=== PATIENT | female | born 1965 | race Caucasian/White ===

== ENCOUNTER → 2020-08-19 12:57 | Outpatient (CLI) | payer SELFPAY, OTHER ==
[2020-07-29 09:58] VITALS: BMI 28.3
--- NOTE | 2020-08-19 13:00 | MRI_ITS ---
STUDY: MRI LUMBAR SPINE WITHOUT CONTRAST REASON FOR EXAM: Female, 54 years old. pain TECHNIQUE: Standardized fat and water weighted pulse sequences were obtained in the sagittal and axial planes. COMPARISON: X-ray 07/29/2020. FINDINGS: T12-L1: Normal endplates. Normal disc height, hydration and morphology. Normal bilateral facet joints. Normal central canal and bilateral lateral recesses. Normal bilateral intervertebral neural foramina. Normal lumbar lordosis. There is no substantial scoliosis. Normal conus medullaris that terminates at the T12 level. L1-2: Normal endplates. Disc dehydration. Small, central, noncompressive disc protrusion. Normal bilateral facet joints. Normal central canal and bilateral lateral recesses. Normal bilateral intervertebral neural foramina. L2-3: Normal endplates. Normal disc height, hydration and morphology. Normal bilateral facet joints. Normal central canal and bilateral lateral recesses. Normal bilateral intervertebral neural foramina. L3-4: Normal endplates. Disc dehydration. Normal bilateral facet joints. Normal central canal and bilateral lateral recesses. Normal bilateral intervertebral neural foramina. L4-5: Chronic L5 fracture with depression of the superior endplate. Disc dehydration. Normal bilateral facet joints. Normal central canal and bilateral lateral recesses. Normal bilateral intervertebral neural foramina. L5-S1: Edematous endplate changes. Marked disc space narrowing. 5 mm anterolisthesis. Bilateral L5 spondylolysis. Mild facet hypertrophy. Normal central canal and bilateral lateral recesses. Moderate foraminal stenosis due to anterolisthesis and uncovered disc. Normal visualized sacral ala. Normal visualized paraspinous soft tissue structures. MRI/Spine Lumbar (Routine) IMPRESSION: 1. Grade 1 spondylolisthesis at L5-S1. Edematous endplate changes suggests instability. 2. Noncompressive L1-2 disc protrusion. 3. Chronic L5 compression fracture. Electronically Signed: Malaika Machuca MD at 16:11 EDT Tel , Service support ,
== END ==
PROVIDERS: PCP Family Medicine; Referring Provider Orthopaedic Surgery; Visit Provider Orthopaedic Surgery
DX: M43.17 Spondylolisthesis, lumbosacral region (principal)
CPT/HCPCS: 72148

== ENCOUNTER 2020-10-01 05:43 | Inpatient (IN) | payer SELFPAY, OTHER ==
--- NOTE | 2020-09-24 09:27 | EKG12_ITS ---
Test Reason : PRE OP Blood Pressure : / mmHG Vent. Rate : 073 BPM Atrial Rate : 073 BPM P-R Int : 132 ms QRS Dur : 078 ms QT Int : 390 ms P-R-T Axes : 047 040 047 degrees QTc Int : 429 ms Normal sinus rhythm Normal ECG Confirmed by JAIME MARSH, CHERYL ([id number]), department editor ALDO FONTANA ([id number]) on 09/25/2020 9:33:37 AM Referred By: Wali Gallagher Confirmed By:CHERYL SANDOVAL MD
[2020-09-24 10:33] LABS: Absolute Lymphocyte Count 2.11 X10^3/uL (0.83-4.51); Absolute Neutrophil Count 4.5 X10^3/uL (2.0-7.7); Basophil# 0.06 X10^3/uL; Basophil% 0.8 % (0-1); Eosinophil# 0.19 X10^3/uL; Eosinophils% 2.6 % (0-5); Hematocrit 42.7 % (37-47); Lymphocyte # 2.11 X10^3/ul (0.83-4.51); Lymphocyte % 28.3 % (19-41); Mean Corp Hgb Conc 32.8 g/dL (32-36); Mean Corpuscular Hgb 29.6 pg (27.0-32.0); Mean Corpuscular Volume 90.3 fL (81-99); Mean Platelet Vol. 10.4 fl (6.2-12.0); Monocyte# 0.55 X10^3/uL; Monocyte% 7.4 % (0-10); NRBC Flagged by Analyzer 0 % (0-5); Neutrophil # 4.52 X10^3/uL (2.7-7.7); Neutrophil % 60.6 % (47-70); Platelet Count 302 K/mm3 (150-450); RBC Distribution Width CV 13.1 % (11.6-14.6); RBC Distribution Width SD 43.3 fl (35.1-43.9); Red Blood Count 4.73 M/mm3 (4.2-5.4); White Blood Count 7.5 K/mm3 (4.4-11.0)
[2020-09-24 10:53] LABS: Magnesium 2.1 mg/dL (1.6-2.6)
[2020-09-24 10:55] LABS: Anion Gap 6 (5-15); BUN 15 mg/dL (7-18); BUN/Creat Ratio 20.7 RATIO (10-20); Calcium,Total 9.5 mg/dL (8.5-10.1); Chloride 108 mmol/L (98-107); Creatinine, Serum 0.73 mg/dL (0.55-1.02); EST Glomerular Filtration Rate 88 mL/min (>60); Est Glom Filt Rate - Afr Amer 107 mL/min (>60); Glucose 123 mg/dL (74-106); Potassium 3.6 mmol/L (3.5-5.1); Sodium Level 140 mmol/L (136-145)
[2020-09-24 11:23] LABS: HIV - WCH Non-Reactive (Nonreactive)
[2020-09-25 08:08] LABS: HEPATITIS B SURFACE AG Negative (Negative); Hepatitis A AB, Total Negative (Negative); Hepatitis A IgM Antibody Negative (Negative); Hepatitis B Core AB IgM Negative (Negative); Hepatitis B Core Ab Total Negative (Negative); Hepatitis C Ab 0.2 s/co ratio (0.0-0.9)
[2020-09-25 13:33] LABS: Hep B Surface Antibodies Non Reactive (.)
[2020-09-25 13:54] VITALS: BMI 28.3
[2020-10-01] VITALS (15 sets, daily range): BP systolic 103–158; BP diastolic 63–88; PULSE 69–95; RESP 16–18; TEMP 35.8–36.9; O2SAT 94–100; BMI 30.4
[2020-10-01] MEDS: Lactated Ringers 1,000 ML 100 ML IV ×3 (06:35→17:00)
[2020-10-01] MEDS: Acetaminophen 500 MG Tablet 1000 MG PO (06:36)
--- NOTE | 2020-10-01 07:30 | DISC_PTH ---
PATIENT: SOLIS BUI LOC: MS3 U#:[id number] AGE/SX: 54/F ROOM: [facility] [place] RE10/01/[address]: Dr. Lissy Curtis MD : 1965 BED: 1 DIS: 10/04/2020 SPEC #: [id number] RECD: 10/01/20 15:45 STATUS: ROSELIA REQ #: [id number] AMIRA: 10/01/20 07:[address]: Wali Gallagher DEPT: SURGICAL PATHOLOGY RECD BY: Annamaria Lai ENTERED: 10/02/20 11:12 SP TYPE: DISC OTHR DR: MD Dr. Wali Terrell DO Dr. Nana Yaa Koram, MD Kimberly Hills, PA-C Tissues: Intervertebral disc, NOS Procedures: Surgery Specimen Level III Comments: @ Ordering doctor for SUIII edited from to @ by JAMIE at 10/02/20 1213 @ Submitting doctor edited from to @ by RGOOD at 10/02/20 1213 HEADER OPERATION: ERAS, 360 fusion L5-S1 with pedicle fixation PRE-OP DIAGNOSIS: Spondylolisthesis at L5-S1 level TISSUE SUBMITTED: L5-S1 MICROSCOPIC DIAGNOSIS L5-S1: Fragments of fibrocartilaginous tissue with degenerative changes. TG:angelia 10/04/2020 MICROSCOPIC DESCRIPTION Slides are reviewed. GROSS DESCRIPTION Received in fixative is one container labeled with the patient's name and designated lumbar 5 sacral 1 bone. The specimen consists of multiple irregular fragments of light mireles indurated tissue. The largest fragment measures 4 x 3 x 2 cm. The smaller fragments measure in aggregate 3 x 2.5 x 0.3 cm. The larger fragment is serially sectioned. Behavioral Health Care Coordinator sections are submitted in two cassettes. / TG:angelia 10/02/20 TC:5 CPT: 12216
--- NOTE | 2020-10-01 07:30 | RAD_ITS ---
STUDY: X-RAY - LUMBAR SPINE REASON FOR EXAM: Female, 54 years old. 360 FUSION L5-S1 WITH PEDICAL FIXATION TECHNIQUE: 1 view(s) of the lumbar spine were obtained. COMPARISON: None FINDINGS: Single lateral view was obtained intraoperatively. The metallic marker is seen along the anterior aspect of the L5-S1 level. RAD/Spine 1 View Any Level IMPRESSION: The localizing instrument is seen along the anterior aspect of the L5-S1 disc space level. Electronically Signed: Keegan Kenny MD at 12:34 EDT , Service support ,
[2020-10-01] MEDS: Cefazolin 2 GM in 0.9% Normal Saline 100 ML IV (07:50)
[2020-10-01] MEDS: Heparin 10,000 UNITS/10 ML Vial 10000 UNITS ×2 (08:00)
[2020-10-01] MEDS: THROMBIN (RECOMBINANT) 20,000 UNIT VIAL 20000 UNIT TOPICAL (08:00)
--- NOTE | 2020-10-01 09:50 | RAD_ITS ---
STUDY: X-RAY - LUMBAR SPINE REASON FOR EXAM: Female, 54 years old. 360 FUSION L5-S1 W/ PEDICAL FIXATION TECHNIQUE: Single lateral intraoperative view(s) of the lumbar spine was obtained. COMPARISON: None FINDINGS: Limited examination. There is evidence of anterior fusion. The level cannot be determined. RAD/Spine 1 View Any Level IMPRESSION: Anterior fusion. The exact level cannot be determined on this examination. Electronically Signed: Keegan Kenny MD at 12:36 EDT , Service support ,
--- NOTE | 2020-10-01 10:30 | RAD_ITS ---
STUDY: X-RAY - LUMBAR SPINE REASON FOR EXAM: Female, 54 years old. L5-S1 FUSION TECHNIQUE: Single lateral intraoperative view(s) of the lumbar spine was obtained. COMPARISON: None FINDINGS: There is evidence of prior anterior fusion. The exact level cannot be determined on this examination. RAD/Spine 1 View Any Level IMPRESSION: Status post anterior fusion. Electronically Signed: Keegan Kenny MD at 12:37 EDT , Service support ,
--- NOTE | 2020-10-01 11:06 | RAD_ITS ---
PROCEDURE: L5-S1 fusion. DATE OF EXAMINATION: 10/01/2020. INDICATION: Female, 54 years old. Chronic low back pain. FLUOROSCOPY TIME (if supplied): (17.6 seconds) minutes/seconds. 5 intraoperative views were obtained. Intraoperative fluoroscopy provided for anterior fusion and disc prosthesis at the L5-S1 level as well as posterior fusion. RAD/L/S Spine Min 4 Views IMPRESSION: Intraoperative fluoroscopic imaging provided for 360 degree fusion at the L5-S1 level. Electronically Signed: Keegan Kenny MD at 15:15 EDT , Service support ,
--- NOTE | 2020-10-01 11:13 | OP.PCM_ITS ---
Report of Operation Date of Procedure: 10/01/20 Description of Procedure: Preoperative diagnoses: Grade 1 spondylolisthesis with instability L5-S1 Postoperative diagnoses: The same Procedures #1 anterior lumbar interbody fusion L5-S1 CPT code #75203 #2 insertion of anterior cage L5-S1 CPT code 05691/59 #3 anterior spine plate L5-S1 CPT code 52811 Cosurgeons: Dr. Gallagher and Dr. Mendoza assistant community director: Brien from surgery Anesthesia: General endotracheal anesthesia administered by [facility] Estimated blood loss was 100 cc Drains: None Complications: None Procedure: Patient was taken to the OR where she was placed supine position on the operating table she was then placed under general endotracheal anesthesia. The abdomen was then prepped and draped in standard fashion. The surgical approach is then described in Dr. Mendoza's surgical summary. Once he had good access to the L5-S1 disc an intraoperative x-ray was taken with a marker in place to show that we were indeed at that level. I then remove the anterior annulus with a 10 blade and removed more nucleus from within the disc space with pituitary rongeurs. Following this I used both ring curettes and bowl curettes to remove the cartilage off both endplates. A bur was used to flatten the sides of the vertebra particularly at the top of S1 and to give us a little more space posteriorly. In the interim a Jamshidi needle was used over the left ASIS and 60 cc of bone marrow aspirate were obtained. This was handed off to the rehabilitation therapy technician who spun down the blood isolated the stem cells concentrated them about 10 times and gave them back to us on the OR table. I then elevated the anterior longitudinal ligament off the bottom of the L5 vertebra on the top of the S1 vertebra with cautery. The anterior osteophytes were removed with double-action rongeurs. We then took her measurements for a graft we decided to use a 25 x 35 mm 8 degree 12 mm high cage. This was the trial cage. Following this I used both the 10 and 12 high broaches to broach the space and make good bleeding endplate. Thorough irrigation was carried out we then filled the 12 mm cage with spongy demineralized bone matrix. This was then soaked in the patient's concentrated stem cells and was tamped into place and countersunk about 2 mm. We then used a 25 mm L5-S1 anterior plate centered at and punched 4 holes with an awl to into S1-2 into L5 and L5 we entered with 30 mm screws in S1 with 25 mm screws. The locking mechanisms were then activated. Amnionic graft was then placed directly over the plate to prevent his adhesion to the major vessels. The closure is then described in Dr. Mendoza's operative summary. This is the end of anterior operative summary on Bridgette Murillo this is Dr. Gallaghre dictating.
[2020-10-01 11:38] LABS: Bedside Glucose 140 mg/dL (70-110)
--- NOTE | 2020-10-01 12:00 | OP.PCM_ITS ---
Problems Associated Problem List Diagnoses (1) Spondylolisthesis at L5-S1 level: Report of Operation Date of Procedure: 10/01/20 Pre-Operative Diagnosis: Degenerative disc disease with spondylolisthesis Post-Operative Diagnosis: Same Surgery/Procedure Performed:: 1. Anterior lumbar interbody fusion L5-S1. 2. Anterior plate with 2 screws into L5 and 2 screws in the S1. 3. Placement of the intervertebral body cage with Bone marrow aspirate Type of Anesthesia: General/Regional Description of Procedure: Surgeon: Dr. Gallagher co-surgeon: Dr. Reinaldo Mendoza Patient brought to the operating room. Underwent general anesthesia. Appropriate monitoring lines were all placed. Patient previously undergone appropriate timeout consent. Appropriate antibiotics have been given. She was then prepped and draped in a sterile fashion. We did a left lower quadrant incision and dissected down to the fascia. We incised the fascia just to the midline and laterally past the rectus into the obliques. We then freed up the anterior sheath superior and inferior. We then got lateral to the rectus into the retroperitoneal plane onto the iliopsoas muscle. We then put in the Omni retractor. And then blunt dissection down into the L5-S1 disc space. Multiple venous branches getting through here were divided between clips. Once we got onto the disc space the middle sacral vessels were divided between clips. This included the artery and several veins. Were then able to get good blunt dissection along the entire disc base and superior and inferior onto L5 and S1. We then marked with a needle confirming we are in the appropriate space. She then underwent the discectomy. Had dilated up to a 12 mm. A broach was then used along the endplates. Drill was also used freeing up along the endplates along this area. Bone marrow aspirate had been a taken at this point and then underwent the process to be ready to use for the cage. Then it was freed up a long the anterior lung to the ligament and L5 and S1 for placement of the plate. And there is good position of this. A 12 mm cage was then placed. After the bone marrow aspirate was processed and ready and the cage was prepped. We then put on an anterior plate with 2 screws in L5 and then 2 screws into the sacrum. We put a film over the cage and released the retractors with good hemostasis. We did a completion x-ray that showed good position of the screws and the cage. We then closed the fascia with a running strata fix. Then 7 interrupted 2-0 and 3-0 Vicryl. 4-0 Monocryl Dermabond for the skin. I was present during the entire portion of this operation for the complexity and the continued exposure. Patient will then be flipped over and all will be dictated separately Complications None
--- NOTE | 2020-10-01 14:36 | OP.PCM_ITS ---
Report of Operation Date of Procedure: 10/01/20 Description of Procedure: Preoperative diagnosis: Grade 1 spondylolisthesis L5- S1 Postoperative diagnoses: The same The procedures: #1 bilateral lateral fusion L5-S1 CPT code 56186 #2 internal pedicle fixation CPT code 38093 Surgeon: Dr. Gallagher construction management assistant: Brien from surgery Anesthesia: General endotracheal anesthesia administered by [facility] Drains: Medium Hemovac EBL: 100 cc Complications: None Procedure: Once the anterior surgery was completely done and the abdomen was closed by Dr. Mendoza the patient was then moved over to the Rodo Table on a Shar frame. Once she was properly positioned with care to protect her bony prominences her breasts bilaterally her brachial plexus on each side her axilla on each side and her ulnar nerves and facial features the back was prepped and draped standard fashion. I then made a longitudinal incision centered over L5 S1. Subcutaneous tissues were incised length of the skin incision. I then opened the lumbar fascia first the left of the spinous processes using cautery and then elevated the paravertebral muscles off the lamina of L5 and the lamina of S1. Also went ahead and elevated the musculature off of the transverse process of 5 and the ala of the sacrum. We thoroughly irrigated and packed the left side I then opened the right side the same exact fashion elevating peritoneal muscles off the lamina of L5 the lamina of S1 and out over the facets and the transverse processes L5 and the ala. Thorough irrigation was carried out here. We then put the super slide retractors in place giving us good access. I started by finding the entry point for the pedicle screw of L5 on the left side. The spot was roughly from the inferior part of the superior facet of S1 at the center junction of the transverse process once identified the spot I used a bur to break the cortex I then used an awl to start the whole and followed with a gearshifter. This was seen on the both AP and lateral projections on the C arm and was found to be quite satisfactory. I then went ahead and tapped the pedicle with a 5.5 tap and then entered with a 5.5 35 mm long screw. Note that prior to tapping of course probed the inside of the pedicle the superior part inferior part of both the medial and lateral portions and we found to have solid bone all the way around. Then moved down a little further lateral at at S1. I can identify the pedicle in the same fashion I break in the cortex first followed by the end in treatment all and then the gear shift. He got the right ankle bite looking at the image enhancement unit once this was done I went ahead and tapped it with a 5.5 tap. Again we checked the eye cardenas that is the medial lateral and superior and inferior wall of the pedicle to make sure that we did not break the pedicle cortex. Following this we entered with a 6.5 millimeter screw that was 35 mm long. We then used a 40 millimeter long karthikeyan in place and in the center of the polyaxial insertions on each of the 2 pedicle screws. I then entered with the locking screw into each 1 followed by the use of the torque wrench to torque both locking screws. Again saw the construct on the AP and lateral projection of the image enhancement and was found to be quite satisfactory. Then thoroughly irrigated again. I then used a bur to break the cortex of the transverse processes of L5 on both sides and the ala on both sides we then put the stem cells soaked the DBM in place in both gutters. A medium Hemovac drain was inserted and closure was begun. Closed the lumbar fascia using [id number] suture with #1 Vicryl followed by closure of subcutaneous tissues with both 0 Vicryl and 2-0 Vicryl in interrupted fashion and in layers and skin was approximated using skin clips note a medium Hemovac drain was left in place. This interoperative summary on Bridgette Murillo this is Dr. Gallagher dictating thank you
[2020-10-01] MEDS: Cefazolin 1 GM/50 ML BAG IV ×2 (17:37→23:30)
[2020-10-01] MEDS: Ensure Surgery 237 ML LIQUID PO (17:37)
[2020-10-01] MEDS: diazePAM 5 MG Tablet PO (17:47)
[2020-10-01] MEDS: Morphine 4 MG/ML Syringe IV (17:47)
--- NOTE | 2020-10-01 17:50 | PCM.HP.STD ---
Documented by User: Srinivasa CALLEJAS 10/01/20 18:07 HPI - General General Date of Admission: 10/01/20 HPI Narrative Patient is a 54-year-old female who presents to the hospital medicine service on consult from orthopedics status post bilateral lateral fusion of L5-S1 and internal pedicle fixation for a grade 1 spondylolisthesis at L5-S1. At this time patient has no complaints, other than mild pain which she reports is controlled under current pain regimen. Review of systems is negative patient denies headache, vision changes, numbness/tingling, chest pain, palpitations, shortness of breath, sputum production, hemoptysis, fever, chills, N/V/D. Past medical history includes back pain secondary to degenerative disc disease, heartburn and anxiety. Past surgical history includes tubal ligation. Patient can recall no family rectal history. Patient reports that she does not smoke, nor has she ever, nor does she drink. Vital signs stable and patient is afebrile. CBC and BMP are unremarkable. Lumbar spine x-ray demonstrates fusion at the L5-S1 level. [facility] Medical History (Updated 10/01/20 @ 18:04 by Srinivasa CALLEJAS) Anxiety Back pain Heartburn Injury of back Non-smoker Wears glasses Home Medications naproxen sodium 220 mg capsule 220 mg PO DAILY 07/29/20 [History Last Taken Unknown] multivit with min-folic acid [Multivitamin Gummies] 2 tab PO DAILY 09/18/20 [History Last Taken 09/29/20] hydrocodone 7.5 mg-acetaminophen 325 mg tablet 1 tab PO Q6H PRN 10 Days #40 tab 09/26/20 [Rx Last Taken 09/29/20] Plexus Biocleanse 1 dose PO/SL DAILY 10/01/20 [History Last Taken 09/29/20] Probiotic 2 tab PO/SL DAILY 10/01/20 [History Last Taken 09/29/20] Allergy/AdvReac Type Severity Reaction Status Date / Time No Known Allergies Allergy Unverified 07/29/20 09:58 Surgical History (Updated 07/29/20 @ 09:59 by Krupa Suresh) Hx of tubal ligation Social History (Updated 08/21/20 @ 11:[address] Wali Gallagher, DO) Smoking Status: Never smoker ROS Constitutional Constitutional: Denies anorexia, change in weight, chills, fatigue, fever(s), malaise, night sweats, weakness or other Eyes Eyes: Denies blurry vision, change in eye color, change in vision, discharge from eye(s), double vision, erythema, eye pain, loss of vision or other ENT HEENT: Denies abnormal hearing, dysphagia, ear pain, epistaxis, headache(s), hearing loss, nasal congestion, nasal discharge, post nasal drip, sinus pressure, sore throat or other Cardiovascular Cardiovascular: Denies chest pain, claudication, dyspnea on exertion, edema, lightheadedness, orthopnea, palpitations, paroxysmal nocturnal dyspnea, rapid heart rate, syncope or other Respiratory/Chest Respiratory/Chest: Denies cough, dyspnea, excessive phlegm production, hemoptysis, productive cough, shortness of breath at rest, shortness of breath with exertion, wheezing or other Gastrointestinal Gastrointestinal: Denies abdominal pain, coffee ground emesis, constipation, diarrhea, dyspepsia, hematemesis, hematochezia, loose stools, melena, nausea, vomiting or other Genitourinary Genitourinary: Denies burning urination, difficulty urinating, dysuria, hematuria, nocturia, urinary frequency, urinary hesitancy, urinary incontinence, urinary urgency or other Musculoskeletal Musculoskeletal: Reports back pain and joint pain; Denies arthralgias, joint stiffness, joint swelling, myalgias, neck pain or other Neurologic Neurologic: Denies abnormal gait, abnormal speech, confusion, disequilibrium, dizziness, focal weakness, headache(s), numbness, paresthesias, seizure-like activity, seizures, syncope, tingling, tremor(s) or other Psychiatric Psychiatric: Denies anxiety, depression, homicidal ideation, suicidal ideation or other Endocrine Endocrinology: Denies change in body appearance, cold intolerance, excessive sweating, heat intolerance, polydipsia, polyuria or other Hematologic/Lymphatic Hematologic/Lymphatic: Denies anemia, easy bleeding, easy bruising, lymphadenopathy or other Allergic/Immunologic Allergic/Immunologic: Denies rhinitis, hives, eczemia, asthma or other Vital Signs Vital Signs Vital Signs: 10/01/20 06:26 10/01/20 14:52 10/01/20 15:00 Temperature 97.6 F L 96.5 F L Temperature Source Temporal Temporal Pulse Rate 95 71 71 Pulse Strength Respiratory Rate 18 16 16 Respiratory Pattern Normal Normal Blood Pressure 121/88 H 158/81 H 106/86 H Blood Pressure Mean 99 106 92 Blood Pressure Source Monitor Monitor Blood Pressure Position Semi-Fowlers Semi-Fowlers Blood Pressure Location Right Arm Left Forearm Baseline BP 121/88 121/88 Pulse Ox 95 100 100 Oxygen Delivery Method Room Air Simple Mask Simple Mask Oxygen Flow Rate (L/min) 6 6 10/01/20 15:04 10/01/20 15:15 10/01/20 15:30 Temperature Temperature Source Pulse Rate 87 73 Pulse Strength Normal (2+) Respiratory Rate 16 16 Respiratory Pattern Blood Pressure 124/80 H 127/87 H Blood Pressure Mean 94 100 Blood Pressure Source Monitor Monitor Blood Pressure Position Semi-Fowlers Semi-Fowlers Blood Pressure Location Right Forearm Right Forearm Baseline BP 121/88 121/88 Pulse Ox 100 100 Oxygen Delivery Method Simple Mask Simple Mask Oxygen Flow Rate (L/min) 6 6 10/01/20 15:45 10/01/20 16:00 10/01/20 16:15 Temperature Temperature Source Pulse Rate 75 78 75 Pulse Strength Respiratory Rate 16 16 16 Respiratory Pattern Blood Pressure 118/83 H 110/79 130/82 H Blood Pressure Mean 94 89 98 Blood Pressure Source Monitor Monitor Monitor Blood Pressure Position Semi-Fowlers Semi-Fowlers Semi-Fowlers Blood Pressure Location Right Forearm Right Forearm Right Forearm Baseline BP 121/88 121/88 121/88 Pulse Ox 100 100 100 Oxygen Delivery Method Simple Mask Simple Mask Simple Mask Oxygen Flow Rate (L/min) 6 6 6 10/01/20 16:16 10/01/20 16:30 10/01/20 16:45 Temperature 98.1 F Temperature Source Temporal Pulse Rate 80 74 Pulse Strength Normal (2+) Respiratory Rate 16 16 Respiratory Pattern Blood Pressure 125/86 H 127/82 H Blood Pressure Mean 99 97 Blood Pressure Source Monitor Monitor Blood Pressure Position Left Lateral Semi-Fowlers Blood Pressure Location Right Forearm Right Forearm Baseline BP 121/88 121/88 Pulse Ox 99 95 Oxygen Delivery Method Room Air Simple Mask Oxygen Flow Rate (L/min) 6 10/01/20 17:25 Temperature Temperature Source Pulse Rate Pulse Strength Respiratory Rate Respiratory Pattern Blood Pressure Blood Pressure Mean Blood Pressure Source Blood Pressure Position Blood Pressure Location Baseline BP Pulse Ox 97 Oxygen Delivery Method Room Air Oxygen Flow Rate (L/min) Weight Weight: 161 lb 6.054 oz Body Mass Index (BMI) 30.4 Physical Exam Const alert and oriented x3 General Appearance: cooperative HEENT normocephalic, head/scalp atraumatic, hearing grossly normal bilaterally and moist oral mucous membranes Eyes PERRL, EOMs intact bilaterally and conjunctivae normal Neck no lymphadenopathy, supple and no JVD Resp normal respiratory effort, no retractions, no use of accessory muscles and clear to auscultation bilaterally Cardio regular rate, regular rhythm, no murmurs and no JVD GI normal to inspection, nondistended, normoactive bowel sounds, soft to palpation, non-tender and non-distended Extremity normal to inspection, full ROM and no clubbing, cyanosis or edema Skin no rashes or lesions noted, no wounds and skin turgor normal Neuro CN's II-XII intact bilaterally Psych affect normal Lab / Micro Data Result Diagrams: 09/24/20 09:38 09/24/20 09:38 Labs: Laboratory Results - last 24 hr 10/01/20 10/01/20 06:19 08:28 POC Glucose 140 H Blood Type A POSITIVE Antibody Screen NEGATIVE Radiology Impression Spine X-Ray 10/01/20 07:30 IMPRESSION: The localizing instrument is seen along the anterior aspect of the L5-S1 disc space level. Electronically Signed: Keegan Kenny MD at 12:34 EDT , Service support , Spine X-Ray 10/01/20 09:50 IMPRESSION: Anterior fusion. The exact level cannot be determined on this examination. Electronically Signed: Keegan Kenny MD at 12:36 EDT , Service support , Spine X-Ray 10/01/20 10:30 IMPRESSION: Status post anterior fusion. Electronically Signed: Keegan Kenny MD at 12:37 EDT , Service support , Lumbar Spine X-Ray 10/01/20 11:06 IMPRESSION: Intraoperative fluoroscopic imaging provided for 360 degree fusion at the L5-S1 level. Electronically Signed: Keegan Kenny MD at 15:15 EDT , Service support , Assessment & Plan Assessment/Plan (1) Spondylolisthesis at L5-S1 level: (2) Heartburn: (3) Anxiety: PLAN: Patient is a 54-year-old female who presents to the hospital medicine service on consult from orthopedics status post fusion at L5-S1 for a spondylolisthesis at the same location. Patient only reports mild pain status post surgery, reports that pain is currently controlled on current pain regimen. Labs within normal limits. X-ray of the lumbar spine demonstrates successful fusion at L5-S1. 1) Spondylolisthesis at L5-S1 S/p successful fusion at L5-S1. Pain controlled on current current pain regimen. Plan; continue to monitor, continue lactated Ringer's, continue cefazolin, senna ordered for constipation. 2) Heartburn Continue Pepcid 20 mg p.o. twice daily. 3) Anxiety Valium 5 mg p.o. every 6 as needed. DVT Prophylaxis - not indicated CODE STATUS; FULL CODE Patient seen by Srinivasa Sorto PA-C, under the supervision of Dr. Ford. Documented by User: Dr. Francesca Ford MD 10/01/20 18:13 HPI - General General Date of Admission: 10/01/20 [facility] Medical History (Updated 10/01/20 @ 18:04 by Srinivasa CALLEJAS) Anxiety Back pain Heartburn Injury of back Non-smoker Wears glasses Home Medications naproxen sodium 220 mg capsule 220 mg PO DAILY 07/29/20 [History Last Taken Unknown] multivit with min-folic acid [Multivitamin Gummies] 2 tab PO DAILY 09/18/20 [History Last Taken 09/29/20] hydrocodone 7.5 mg-acetaminophen 325 mg tablet 1 tab PO Q6H PRN 10 Days #40 tab 09/26/20 [Rx Last Taken 09/29/20] Plexus Biocleanse 1 dose PO/SL DAILY 10/01/20 [History Last Taken 09/29/20] Probiotic 2 tab PO/SL DAILY 10/01/20 [History Last Taken 09/29/20] Allergy/AdvReac Type Severity Reaction Status Date / Time No Known Allergies Allergy Unverified 07/29/20 09:58 Surgical History (Updated 07/29/20 @ 09:59 by Krupa Suresh) Hx of tubal ligation Social History (Updated 08/21/20 @ 11:[address] Wali Gallagher, DO) Smoking Status: Never smoker Lab / Micro Data Result Diagrams: 09/24/20 09:38 09/24/20 09:38
[2020-10-01] MEDS: oxyCODONE 5 MG Tablet PO (19:45)
[2020-10-01] MEDS: Famotidine 20 MG Tablet PO (21:24)
[2020-10-01] MEDS: Senna/Docusate Sodium 1 Tablet 2 TABLET PO (21:25)
[2020-10-01] MEDS: Zolpidem Tartrate 5 MG Tablet PO (23:28)
[2020-10-02 01:20] VITALS: BP 111/61; PULSE 83; RESP 16; TEMP 36.9; O2SAT 96
[2020-10-02] MEDS: diazePAM 5 MG Tablet PO ×4 (01:54→22:16)
[2020-10-02] MEDS: Morphine 2 MG/ML Syringe IV (01:54)
[2020-10-02 05:23] VITALS: BP 115/77; PULSE 92; RESP 16; TEMP 36.9; O2SAT 97
[2020-10-02] MEDS: oxyCODONE 5 MG Tablet PO ×4 (06:34→21:35)
[2020-10-02 06:38] VITALS: O2SAT 98
--- NOTE | 2020-10-02 08:34 | PCM.PROGNOTE ---
Subjective Subjective And is doing well status post a L5-S1 360 fusion. Pain is well controlled. Some discomfort on the lateral thigh. No obvious hematomas. Sitting up comfortably. No edema and normal pulses noted. Objective Data Objective Data Vital Signs: Vital Signs Temp Pulse Resp BP Pulse Ox 98.5 F 92 16 115/77 97 10/02/20 05:23 10/02/20 05:23 10/02/20 05:23 10/02/20 05:23 10/02/20 05:23 Oxygen Flow Rate (L/min) 6 Oxygen Delivery Method Room Air Weight: 161 lb 6.054 oz Body Mass Index (BMI) 30.4 Intake & Output: Intake and Output for Last 24 Hours 09/30/20 10/01/20 10/02/20 23:59 23:59 23:59 Intake Total 4340.67 / 4390.67 220.25 / 220.25 Output Total 740 / 740 1700 / 1700 Balance 3600.67 / 3650.67 -1479.75 / -1479.75 Lab / Micro Data Result Diagrams: 09/24/20 09:38 09/24/20 09:38 Labs: Laboratory Results - last 24 hr 10/01/20 10/01/20 06:19 08:28 POC Glucose 140 H Blood Type A POSITIVE Antibody Screen NEGATIVE Micro: Microbiology 09/27/20 09:30 Interface Orders SARS-CoV-2 Antigen (Rapid) - Final 09/24/20 09:38 Swab (Method) Nasal Screen MRSA/MSSA - Final Radiography Diagnostic Testing: Radiology Impression Spine X-Ray 10/01/20 07:30 IMPRESSION: The localizing instrument is seen along the anterior aspect of the L5-S1 disc space level. Electronically Signed: Keegan Kenny MD at 12:34 EDT , Service support , Spine X-Ray 10/01/20 09:50 IMPRESSION: Anterior fusion. The exact level cannot be determined on this examination. Electronically Signed: Keegan Kenny MD at 12:36 EDT , Service support , Spine X-Ray 10/01/20 10:30 IMPRESSION: Status post anterior fusion. Electronically Signed: Keegan Kenny MD at 12:37 EDT , Service support , Lumbar Spine X-Ray 10/01/20 11:06 IMPRESSION: Intraoperative fluoroscopic imaging provided for 360 degree fusion at the L5-S1 level. Electronically Signed: Keegan Kenny MD at 15:15 EDT , Service support , Physical Exam Narrative Patient is awake alert oriented No apparent distress Afebrile vital signs stable Extremities palpable radial and pedal pulses No edema noted Dressing intact Assessment & Plan Assessment/Plan (1) Spondylolisthesis at L5-S1 level: PLAN: 1. Patient status post 360 fusion. She is doing well. We will continue to follow as needed
[2020-10-02 09:15] VITALS: BP 112/74; PULSE 98; RESP 16; TEMP 37.1; O2SAT 95
[2020-10-02] MEDS: Ensure Surgery 237 ML LIQUID PO ×2 (09:20→13:07)
[2020-10-02] MEDS: Senna/Docusate Sodium 1 Tablet 2 TABLET PO ×2 (09:21→21:35)
[2020-10-02] MEDS: Famotidine 20 MG Tablet PO ×2 (09:22→21:35)
--- NOTE | 2020-10-02 10:30 | CASEMGMT ---
RN CM Face to Face with patient for initial transition planning/care coordination assessment. RN CM introduced self and role at [facility]. Patient lying in bed, alert and oriented. Patient willing to participate in assessment and is able to answer all questions appropriately. Care providers, pharmacy, and demographics verified. Patient wishes to discharge home, denies need for home health at this time. Patient states she has no further needs or concerns at this time. CM to follow for discharge planning needs that may arise. PCP: April Rivera [employer] Specialists: Elliott spinal surgeon; [facility]erred [facility]acy[facility] Insurance: Commercial other Prescription Benefit: yes Living Will/HPOA: yes, Himanshu Murilol LNOK: Living Arrangements: Patient lives with in a 2 story home with bed and bath on first floor. 2 steps to enter the home. Patient was independent at home prior to discharge Transportation: self/ DME/HHC: Patient denies DME or previous HHC Disposition Plan: Patient to discharge home with family support and follow-up plans in place. Jeanne DUNCANN, RN, CM
--- NOTE | 2020-10-02 10:59 | PN.HOSP_ITS ---
Documented by User: Srinivasa CALLEJAS 10/02/20 11:07 Subjective Subjective Patient is a 54-year-old female comfortably resting in bed, alert and oriented x3. Patient denies any change or progression in symptoms from yesterday, reports that overall body pain has improved. Patient does report some muscle spasms of the left leg. Denies chest pain, shortness of breath, palpitations, fever, chills, N/V/D. Objective Data Objective Data Vital Signs: Vital Signs Temp Pulse Resp BP Pulse Ox 98.5 F 92 16 115/77 98 10/02/20 05:23 10/02/20 05:23 10/02/20 05:23 10/02/20 05:23 10/02/20 06:38 Oxygen Flow Rate (L/min) 6 Oxygen Delivery Method Room Air Weight: 161 lb 6.054 oz Body Mass Index (BMI) 30.4 Intake & Output: Intake and Output for Last 24 Hours 09/30/20 10/01/20 10/02/20 23:59 23:59 23:59 Intake Total 4340.67 / 4390.67 220.25 / 220.25 Output Total 740 / 740 1700 / 1700 Balance 3600.67 / 3650.67 -1479.75 / -1479.75 Lab / Micro Data Result Diagrams: 09/24/20 09:38 09/24/20 09:38 Labs: Laboratory Results - last 24 hr 10/01/20 06:19 POC Glucose 140 H Micro: Microbiology 09/27/20 09:30 Interface Orders SARS-CoV-2 Antigen (Rapid) - Final 09/24/20 09:38 Swab (Method) Nasal Screen MRSA/MSSA - Final Radiography Diagnostic Testing: Radiology Impression Spine X-Ray 10/01/20 07:30 IMPRESSION: The localizing instrument is seen along the anterior aspect of the L5-S1 disc space level. Electronically Signed: Keegan Kenny MD at 12:34 EDT , Service support , Spine X-Ray 10/01/20 09:50 IMPRESSION: Anterior fusion. The exact level cannot be determined on this examination. Electronically Signed: Keegan Kenny MD at 12:36 EDT , Service support , Spine X-Ray 10/01/20 10:30 IMPRESSION: Status post anterior fusion. Electronically Signed: Keegan Kenny MD at 12:37 EDT , Service support , Lumbar Spine X-Ray 10/01/20 11:06 IMPRESSION: Intraoperative fluoroscopic imaging provided for 360 degree fusion at the L5-S1 level. Electronically Signed: Keegan Kenny MD at 15:15 EDT , Service support , Physical Exam Narrative See subjective. Const alert, oriented x3 and no apparent distress HEENT head/scalp atraumatic and moist oral mucous membranes Head and Scalp: normocephalic Eyes PERRL, EOMs intact bilaterally and conjunctivae normal Neck no lymphadenopathy, supple and no JVD Resp normal respiratory effort, no retractions, no use of accessory muscles and clear to auscultation bilaterally Cardio regular rate, regular rhythm, no murmurs and no JVD GI normal to inspection, nondistended, normoactive bowel sounds, soft to palpation, non-tender and non-distended Extremity normal to inspection, full ROM and no clubbing, cyanosis or edema Skin no rashes or lesions noted, no wounds and skin turgor normal Neuro CN's II-XII intact bilaterally Psych affect normal Assessment & Plan Assessment/Plan (1) Spondylolisthesis at L5-S1 level: (2) Heartburn: (3) Anxiety: (4) Muscle spasms of lower extremity: PLAN: See subjective for presentation. Seeing patient on consult from the orthopedics department s/p fusion at L5-S1 for spondylolisthesis at the same location. Patient does report mild muscle spasms about the left upper leg. Patient currently on morphine for pain, do not want to start Flexeril for concern of PERFORMANCE MANAGER depression. 1) Spondylolisthesis at L5-S1 S/p successful fusion at L5-S1. Pain controlled on current current pain regimen. Plan; continue to monitor, continue lactated Ringer's, continue cefazolin, senna ordered for constipation. 2) Heartburn Continue Pepcid 20 mg p.o. twice daily. 3) Anxiety Valium 5 mg p.o. every 6 as needed. 4) Muscle spams of Left leg Presentation as above. Will not initiate Flexeril over concern for PERFORMANCE MANAGER dep ression, as patient is already on morphine and diazepam. We will continue to monitor on current pain regimen. DVT Prophylaxis - not indicated CODE STATUS; FULL CODE Patient seen by Srinivasa Sorto PA-C, under the supervision of Dr. Curtis. Documented by User: Dr. Lissy Curtis MD 10/02/20 15:44 Objective Data Lab / Micro Data Result Diagrams: 09/24/20 09:38 09/24/20 09:38 Addendum Addendum: Patient seen by Srinivasa Sorto. MAX under my supervision Patient seen and examined. She complains of some back pain which goes down around her left leg. She has no other complaints on review systems otherwise negative. She is postop day 1 for bilateral lateral fusion of L5-S1 and internal pedicle fixation. She has remained hemodynamically stable. O/E; Const alert, oriented x3 and no apparent distress HEENT head/scalp atraumatic and moist oral mucous membranes Head and Scalp: normocephalic Eyes PERRL, EOMs intact bilaterally and conjunctivae normal Neck no lymphadenopathy, supple and no JVD Resp normal respiratory effort, no retractions, no use of accessory muscles and clear to auscultation bilaterally Cardio regular rate, regular rhythm, no murmurs and no JVD GI normal to inspection, nondistended, normoactive bowel sounds, soft to palpation, non-tender and non-distended Extremity normal to inspection, full ROM and no clubbing, cyanosis or edema Skin no rashes or lesions noted, no wounds and skin turgor normal; dressing intact Neuro CN's II-XII intact bilaterally Psych affect normal Plan is to continue Pepcid full history of heartburn and reflux. On Valium 5 mg every 6 hours as needed for anxiety. Rest of management as per primary team. SCDs for DVT prophylaxis. No anticoagulation as she just had spine surgery. Rest as per Srinivasa Sorto PA-C's note which I have reviewed and endorsed. Visit Charges Inpatient E&M: 11106 Subs Hosp L2
[2020-10-02 16:15] VITALS: BP 112/71; PULSE 100; RESP 16; TEMP 36.9; O2SAT 97
--- NOTE | 2020-10-02 16:59 | PCM.PN.ORT ---
Subjective Subjective Postop day #1. The patient's only complaint is that she has some pain in her left buttocks that radiates into the lateral aspect of her left thigh. Basically it stays above the knee. She had some of that before her surgery but because I saw no pressure on a nerve root per se we did not decompress that area. I suspect she has some nerve root swelling and this will probably go away. We did change her dressing today and remove the drain. Incision is dry and healing well. Neurologically she is intact in both lower extremities. Progress is satisfactory. Objective Data Objective Data Vital Signs: Vital Signs Temp Pulse Resp BP Pulse Ox 98.7 F 98 16 112/74 95 10/02/20 09:15 10/02/20 09:15 10/02/20 09:15 10/02/20 09:15 10/02/20 09:15 Oxygen Flow Rate (L/min) 6 Oxygen Delivery Method Room Air Weight: 161 lb 6.054 oz Body Mass Index (BMI) 30.4 Intake & Output: Intake and Output for Last 24 Hours 09/30/20 10/01/20 10/02/20 23:59 23:59 23:59 Intake Total 4340.67 / 4390.67 720.25 / 720.25 Output Total 740 / 740 2135 / 2135 Balance 3600.67 / 3650.67 -1414.75 / -1414.75 Lab / Micro Data Result Diagrams: 09/24/20 09:38 09/24/20 09:38 Micro: Microbiology 09/27/20 09:30 Interface Orders SARS-CoV-2 Antigen (Rapid) - Final 09/24/20 09:38 Swab (Method) Nasal Screen MRSA/MSSA - Final
[2020-10-02] MEDS: Acetaminophen 325 MG Tablet 650 MG PO (19:42)
[2020-10-02 20:02] VITALS: BP 100/63; PULSE 91; RESP 16; TEMP 36.8; O2SAT 98
[2020-10-02] MEDS: Zolpidem Tartrate 5 MG Tablet PO (22:16)
[2020-10-03 01:59] VITALS: BP 107/68; PULSE 99; RESP 16; TEMP 37; O2SAT 94
[2020-10-03] MEDS: oxyCODONE 5 MG Tablet PO ×4 (02:03→22:02)
[2020-10-03] MEDS: Acetaminophen 325 MG Tablet 650 MG PO ×2 (06:27→15:28)
[2020-10-03 09:00] VITALS: BP 123/83; PULSE 91; RESP 16; TEMP 36.3; O2SAT 98
[2020-10-03] MEDS: Ensure Surgery 237 ML LIQUID PO (09:08)
[2020-10-03] MEDS: Famotidine 20 MG Tablet PO ×2 (09:15→22:02)
[2020-10-03 09:25] LABS: Bedside Glucose 123 mg/dL (70-110)
--- NOTE | 2020-10-03 10:34 | PN.HOSP_ITS ---
Subjective Subjective Patient seen and examined. She feels well and has no complaints today. Review of systems otherwise negative. She has remained hemodynamically stable. Pain is much better controlled today. Objective Data Objective Data Vital Signs: Vital Signs Temp Pulse Resp BP Pulse Ox 97.4 F L 91 16 123/83 H 98 10/03/20 09:00 10/03/20 09:00 10/03/20 09:00 10/03/20 09:00 10/03/20 09:00 Oxygen Flow Rate (L/min) 6 Oxygen Delivery Method Room Air Weight: 161 lb 6.054 oz Body Mass Index (BMI) 30.4 Intake & Output: Intake and Output for Last 24 Hours 10/01/20 10/02/20 10/03/20 23:59 23:59 23:59 Intake Total 4340.67 / 4390.67 1220.25 / 1720.25 700 / 700 Output Total 740 / 740 2135 / 3335 1300 / 1300 Balance 3600.67 / 3650.67 -914.75 / -1614.75 -600 / -600 Lab / Micro Data Result Diagrams: 09/24/20 09:38 09/24/20 09:38 Labs: Laboratory Results - last 24 hr 10/03/20 09:18 POC Glucose 123 H Micro: Microbiology 09/27/20 09:30 Interface Orders SARS-CoV-2 Antigen (Rapid) - Final 09/24/20 09:38 Swab (Method) Nasal Screen MRSA/MSSA - Final Physical Exam Const alert, oriented x3 and no apparent distress Exam Limitations: no limitations HEENT head/scalp atraumatic and moist oral mucous membranes Head and Scalp: normocephalic Eyes PERRL, EOMs intact bilaterally and conjunctivae normal Neck no lymphadenopathy, supple and no JVD Resp normal respiratory effort, no retractions and no use of accessory muscles Cardio regular rate, regular rhythm, S1 normal heart sound, S2 normal heart sound and no murmurs GI normal to inspection, nondistended, normoactive bowel sounds Extremity normal to inspection, full ROM and no clubbing, cyanosis or edema Peripheral Pulses: Yes pulses 2+ throughout Skin no rashes or lesions noted Neuro oriented x3 Sensorium / Orientation: awake and alert Psych affect normal Assessment & Plan Assessment/Plan (1) Muscle spasms of lower extremity: (2) Anxiety: (3) Spondylolisthesis at L5-S1 level: PLAN: #Spondylolisthesis of L5-S1 * s/p spinal fusion * continue current pain regimen * spine surgery on board * PT/OT. fall precautions * #GERD: on pepcid #Anxiety: on valium prn DVT prophylaxis: SCDs. No anticoagulation as she just had back surgery. Visit Charges Inpatient E&M: 69764 Subs Hosp L2
--- NOTE | 2020-10-03 13:31 | PCM.PN.ORT ---
Objective Data Objective Data Vital Signs: Vital Signs Temp Pulse Resp BP Pulse Ox 97.4 F L 91 16 123/83 H 98 10/03/20 09:00 10/03/20 09:00 10/03/20 09:00 10/03/20 09:00 10/03/20 09:00 Oxygen Flow Rate (L/min) 6 Oxygen Delivery Method Room Air Weight: 161 lb 6.054 oz Body Mass Index (BMI) 30.4 Intake & Output: Intake and Output for Last 24 Hours 10/01/20 10/02/20 10/03/20 23:59 23:59 23:59 Intake Total 4340.67 / 4390.67 1220.25 / 1720.25 1000 / 1000 Output Total 740 / 740 2135 / 3335 1300 / 1300 Balance 3600.67 / 3650.67 -914.75 / -1614.75 -300 / -300 Lab / Micro Data Result Diagrams: 09/24/20 09:38 09/24/20 09:38 Labs: Laboratory Results - last 24 hr 10/03/20 09:18 POC Glucose 123 H Micro: Microbiology 09/27/20 09:30 Interface Orders SARS-CoV-2 Antigen (Rapid) - Final 09/24/20 09:38 Swab (Method) Nasal Screen MRSA/MSSA - Final
--- NOTE | 2020-10-03 13:34 | PCM.PN.ORT ---
Objective Data Objective Data Vital Signs: Vital Signs Temp Pulse Resp BP Pulse Ox 97.4 F L 91 16 123/83 H 98 10/03/20 09:00 10/03/20 09:00 10/03/20 09:00 10/03/20 09:00 10/03/20 09:00 Oxygen Flow Rate (L/min) 6 Oxygen Delivery Method Room Air Weight: 161 lb 6.054 oz Body Mass Index (BMI) 30.4 Intake & Output: Intake and Output for Last 24 Hours 10/01/20 10/02/20 10/03/20 23:59 23:59 23:59 Intake Total 4340.67 / 4390.67 1220.25 / 1720.25 1000 / 1000 Output Total 740 / 740 2135 / 3335 1300 / 1300 Balance 3600.67 / 3650.67 -914.75 / -1614.75 -300 / -300 Lab / Micro Data Result Diagrams: 09/24/20 09:38 09/24/20 09:38 Labs: Laboratory Results - last 24 hr 10/03/20 09:18 POC Glucose 123 H Micro: Microbiology 09/27/20 09:30 Interface Orders SARS-CoV-2 Antigen (Rapid) - Final 09/24/20 09:38 Swab (Method) Nasal Screen MRSA/MSSA - Final Assessment & Plan Assessment/Plan (1) Spondylolisthesis at L5-S1 level: PLAN: Postop day #2.. She is already had a bowel movement. She has Patient is doing much better today than yesterday good bowel sounds. She is very hungry. Is been walking all over the hospital and overall is doing extremely well her dressing has a tiny bit of drainage on it that is where the drain was. We will change it tomorrow before she goes home. Neurologically she is intact. The left buttocks and thigh pain that she had yesterday is already better. We will keep an eye on that and see if it simply goes away. Progress is satisfactory. We will go ahead and give her a diet she can advance. We will see her again tomorrow.
[2020-10-03 15:30] VITALS: BP 105/68; PULSE 94; RESP 16; TEMP 36.7; O2SAT 96
[2020-10-03] MEDS: Ondansetron 4 MG/2 ML Vial IV (17:08)
[2020-10-03] MEDS: 0.9% NaCl Peripheral Flush Adult/Peds IV ×2 (17:11→22:04)
[2020-10-03 20:10] VITALS: BP 104/62; PULSE 89; RESP 16; TEMP 37.2; O2SAT 94
[2020-10-03] MEDS: Zolpidem Tartrate 5 MG Tablet PO (22:02)
[2020-10-03] MEDS: diazePAM 5 MG Tablet PO (22:03)
[2020-10-04 02:45] VITALS: BP 119/71; PULSE 89; RESP 16; TEMP 37.3; O2SAT 95
[2020-10-04] MEDS: oxyCODONE 5 MG Tablet PO ×2 (05:34→13:45)
--- NOTE | 2020-10-04 07:57 | PN.HOSP_ITS ---
Subjective Subjective Patient seen and examined. She had an uneventful night and has no complaints. Review of systems otherwise negative. She has remained hemodynamically stable. Objective Data Objective Data Vital Signs: Vital Signs Temp Pulse Resp BP Pulse Ox 99.1 F 89 16 119/71 95 10/04/20 02:45 10/04/20 02:45 10/04/20 02:45 10/04/20 02:45 10/04/20 02:45 Oxygen Flow Rate (L/min) 6 Oxygen Delivery Method Room Air Weight: 161 lb 6.054 oz Body Mass Index (BMI) 30.4 Intake & Output: Intake and Output for Last 24 Hours 10/02/20 10/03/20 10/04/20 23:59 23:59 23:59 Intake Total 1220.25 / 1720.25 1400 / 1400 Output Total 2135 / 3335 1300 / 1300 Balance -914.75 / -1614.75 100 / 100 Lab / Micro Data Result Diagrams: 09/24/20 09:38 09/24/20 09:38 Labs: Laboratory Results - last 24 hr 10/03/20 09:18 POC Glucose 123 H Micro: Microbiology 09/27/20 09:30 Interface Orders SARS-CoV-2 Antigen (Rapid) - Final 09/24/20 09:38 Swab (Method) Nasal Screen MRSA/MSSA - Final Physical Exam Const alert, oriented x3 and no apparent distress Exam Limitations: no limitations HEENT head/scalp atraumatic and moist oral mucous membranes Head and Scalp: normocephalic Eyes PERRL, EOMs intact bilaterally and conjunctivae normal Neck no lymphadenopathy, supple and no JVD Resp normal respiratory effort, no retractions and no use of accessory muscles Cardio regular rate, regular rhythm, S1 normal heart sound, S2 normal heart sound and no murmurs GI normal to inspection, nondistended, normoactive bowel sounds Extremity normal to inspection, full ROM and no clubbing, cyanosis or edema Skin no rashes or lesions noted Neuro oriented x3 Sensorium / Orientation: awake and alert Psych affect normal Assessment & Plan Assessment/Plan (1) Muscle spasms of lower extremity: (2) Anxiety: (3) Spondylolisthesis at L5-S1 level: PLAN: #Spondylolisthesis of L5-S1 * s/p spinal fusion * continue current pain regimen * spine surgery on board * PT/OT. fall precautions * #GERD: on pepcid #Anxiety: on valium prn DVT prophylaxis: SCDs. No anticoagulation as she just had back surgery. Charges/Coding Visit Charges Inpatient E&M: 14208 Subs Hosp L2
[2020-10-04 08:55] VITALS: BP 94/58; PULSE 95; RESP 16; TEMP 37.2; O2SAT 94
[2020-10-04] MEDS: Ensure Surgery 237 ML LIQUID PO (08:59)
[2020-10-04] MEDS: Senna/Docusate Sodium 1 Tablet 2 TABLET PO (08:59)
[2020-10-04] MEDS: Famotidine 20 MG Tablet PO (08:59)
[2020-10-04] MEDS: Acetaminophen 325 MG Tablet 650 MG PO (09:03)
[2020-10-04 11:03] LABS: Mucous, Urine 0 SEEN /hpf (<or=2+)
[2020-10-04 11:14] LABS: Color, Urine Yellow (Yellow); Glucose, Dipstick Normal (Normal); Ketone-Dipstick Negative (Negative); Leukocyte Esterase-Dipstick 25 /ul (Negative); Nitrite-Dipstick Positive (Negative); Occult Blood-Urine 50 /ul (Negative); Protein-Dipstick Negative (Negative); Specific Gravity, Urine 1.015 (1.002-1.030); Urine Bilirubin Dipstick Negative (Negative); Urine Clarity Sl. Cloudy (Clear); Urine Urobilinogen Normal (Normal)
[2020-10-04 11:22] LABS: Bacteria 1+ /hpf (None Seen); Red Blood Cells-Urine 0-5 SEEN /hpf (0-5); Squamous Epithelial Cells - UA 0-5 SEEN /hpf (5-10); White Blood Cells 0-5 SEEN /hpf (0-5)
--- NOTE | 2020-10-04 13:01 | PCM.DC ---
Discharge Instructions Diet Discharge Diet: No restrictions Activity Discharge Activity: May Not Drive (while taking narcotic pain medications.) May shower in (days): 1 Ice area for (Minutes): 20 (Ice area for 20 minutes each hour while awake) Weight Bearing Status: Weight bearing as tolerated Dressing / Incision Call your doctor if your incision/area has: Continuous Slow Oozing, Sudden Increased Bleeding, Increased Pain/ Swelling, Increased Redness and Foul Smelling Discharge Call your doctor if you observe: Fever of 101 or Higher, Coldness, Increased Pain, Numbness or Tingling and Change in Color Follow Up Care Test Results: Test results from this visit will be discussed in further detail at your follow-up appointment, if applicable. Discharge Plan Admission Admit Date/Time: 10/01/20 05:43 Primary Reason for Your Visit: surgery Attending Provider: Lissy Curtis Primary Care Provider: Alanna Rivera Consulting Providers: Francesca Ford Discharge Orders/Prescriptions Prescriptions: New cefdinir 300 mg capsule 300 mg PO BID Qty: 14 RF: 0 ondansetron HCl [Zofran] 4 mg tablet 4 mg PO Q6H PRN (Reason: nausea and vomiting) Qty: 20 RF: 0 Continued naproxen sodium [Aleve] 220 mg capsule 220 mg PO DAILY RF: 0 hydrocodone-acetaminophen 7.5-325 mg tablet 1 tab PO Q6H PRN (Reason: pain) 10 Days Qty: 40 RF: 0 Multivitamin Gummies 200 mcg Tablet,Chewable 2 tab PO DAILY RF: 0 Plexus Biocleanse 1 dose PO/SL DAILY RF: 0 Probiotic 2 tab PO/SL DAILY RF: 0 Referrals / Follow Up: Wali Gallagher DO [STAFF PHYSICIAN] - (Appointment is already in place) Alanna Rivera PA-C [Primary Care Provider] - Disposition Disposition (needs filled in before D/C Order can be placed): Home, self care
[2020-10-04 14:15] VITALS: BP 125/94; PULSE 94; RESP 16; TEMP 37.2; O2SAT 92
--- NOTE | 2020-10-04 14:50 | PHA.DC.MR ---
Pharmacy Service has performed discharge medication reconciliation for this patient. The patient's discharge medication list was reviewed for discrepancies and discrepancies were resolved. Home Medications naproxen sodium 220 mg capsule 220 mg PO DAILY 07/29/20 Multivitamin Gummies 2 tab PO DAILY 09/18/20 hydrocodone 7.5 mg-acetaminophen 325 mg tablet 1 tab PO Q6H PRN 10 Days #40 tab 09/26/20 Plexus Biocleanse 1 dose PO/SL DAILY 10/01/20 Probiotic 2 tab PO/SL DAILY 10/01/20 cefdinir 300 mg PO BID #14 cap 10/04/20 ondansetron HCl [Zofran] 4 mg PO Q6H PRN #20 tab 10/04/20
--- NOTE | 2020-10-04 15:46 | DS.PCM_ITS ---
Providers Date of Admission: 10/01/20 Primary Care Physician: Alanna Rivera PA-C Mrs. Murillo was admitted on October 01, 2020 is being discharged on October 04, 2020. The admitting diagnosis was spinal listhesis L5-S1. The discharge diagnoses are the same. Procedures while in the hospital: The date of admission she underwent a 360 degree fusion at the L5-S1 level. She tolerated the procedure well. Consultations while in the hospital: Dr. Lissy Curtis. Lab data while in the hospital is substantiated in this chart. Hospital course: The date of admission the patient underwent the procedure mentioned. Postoperatively she did well she never developed an ileus and we were able to feed her after a couple of days. I discharged her incision is healing well. Neurologically she is intact. She was given postop 360 protocol regarding her activities. She was told that she can now eat a regular diet. She was given hydrocodone for pain which was picked up before her surgery. She was asked to follow-up in my office after 12 or 13 days. She already has that appointment. This is the end of discharge summary on Bridgette Murillo Dr. Gallagher dictating. Consultations 10/01/20 16:15 Consult: Hospitalist Routine Consulting Provider: Francesca Ford Reason for Consult: Medical Management EMERGENT Consult: No MD Notified: Yes Date Notified:: 10/01/20 Time Notified: 11:09 Method of Notification: Text Reason For Visit: 360 FUSION L5-S1 Diagnosis Discharge Diagnosis (1) Muscle spasms of lower extremity: Status: Acute Code(s): M62.838 - Other muscle spasm (2) Anxiety: Status: Acute Code(s): F41.9 - Anxiety disorder, unspecified (3) Spondylolisthesis at L5-S1 level: Status: Acute Code(s): M43.17 - Spondylolisthesis, lumbosacral region Medications at Discharge Home Medications naproxen sodium 220 mg capsule 220 mg PO DAILY 07/29/20 Multivitamin Gummies 2 tab PO DAILY 09/18/20 hydrocodone 7.5 mg-acetaminophen 325 mg tablet 1 tab PO Q6H PRN 10 Days #40 tab 09/26/20 Plexus Biocleanse 1 dose PO/SL DAILY 10/01/20 Probiotic 2 tab PO/SL DAILY 10/01/20 cefdinir 300 mg PO BID #14 cap 10/04/20 ondansetron HCl [Zofran] 4 mg PO Q6H PRN #20 tab 10/04/20 ABG / Lab / Microbiology Data Result Diagrams: 09/24/20 09:38 09/24/20 09:38 Laboratory: Laboratory Results - last 24 hr 10/04/20 10:50 Urine Color Yellow Urine Clarity Sl. Cloudy Urine pH 8.0 Ur Specific [place] 1.015 Urine Protein Negative Urine Glucose (UA) Normal Urine Ketones Negative Urine Occult Blood 50 H Urine Nitrite Positive H Urine Bilirubin Negative Urine Urobilinogen Normal Ur Leukocyte Esterase 25 H Urine RBC 0-5 SEEN Urine WBC 0-5 SEEN Ur Squamous Epith Cells 0-5 SEEN Urine Bacteria 1+ Urine Mucus 0 SEEN Microbiology: Microbiology 09/27/20 09:30 Interface Orders SARS-CoV-2 Antigen (Rapid) - Final 09/24/20 09:38 Swab (Method) Nasal Screen MRSA/MSSA - Final D/C Instructions Discharge Diet: No restrictions May shower in (days): 1 Ice area for (Minutes): 20 (Ice area for 20 minutes each hour while awake) Weight Bearing Status: Weight bearing as tolerated Call your doctor if your incision/area has: Continuous Slow Oozing, Sudden Increased Bleeding, Increased Pain/ Swelling, Increased Redness and Foul Smelling Discharge Call your doctor if you observe: Fever of 101 or Higher, Coldness, Increased Pain, Numbness or Tingling and Change in Color Meaningful Use Info Meaningful Use Diagnoses (Choose all that apply): None applicable Discharge Plan Admission Admit Date/Time: 10/01/20 05:43 Primary Reason for Your Visit: surgery Attending Provider: Lissy Curtis Primary Care Provider: Alanna Rivera Consulting Providers: Francesca Ford Discharge Orders/Prescriptions Prescriptions: New cefdinir 300 mg capsule 300 mg PO BID Qty: 14 RF: 0 ondansetron HCl [Zofran] 4 mg tablet 4 mg PO Q6H PRN (Reason: nausea and vomiting) Qty: 20 RF: 0 Continued naproxen sodium [Aleve] 220 mg capsule 220 mg PO DAILY RF: 0 hydrocodone-acetaminophen 7.5-325 mg tablet 1 tab PO Q6H PRN (Reason: pain) 10 Days Qty: 40 RF: 0 Multivitamin Gummies 200 mcg Tablet,Chewable 2 tab PO DAILY RF: 0 Plexus Biocleanse 1 dose PO/SL DAILY RF: 0 Probiotic 2 tab PO/SL DAILY RF: 0 Referrals / Follow Up: Wali Gallagher DO [STAFF PHYSICIAN] - (Appointment is already in place) Alanna Rivera PA-C [Primary Care Provider] - Disposition Disposition (needs filled in before D/C Order can be placed): Home, self care
== END 2020-10-04 14:27 | disposition home or self-care (01) | DRG 460 ==
LOC: ACINP 09:30 → MS3 16:09
PROVIDERS: Anesthesiology; Admitting Provider Orthopaedic Surgery; PCP Family Medicine; Referring Provider Orthopaedic Surgery; Visit Provider Student in an Organized Health Care Education/Training Program
PROC: 0SG30A0 Fusion of Lumbosacral Joint with Interbody Fusion Device, Anterior Approach, Anterior Column, Open Approach (ICD-10-PCS; principal; 2020-10-01 07:00)
DX: M43.17 Spondylolisthesis, lumbosacral region (principal); M62.838 Other muscle spasm; E16.2 Hypoglycemia, unspecified; F41.9 Anxiety disorder, unspecified; K21.9 Gastro-esophageal reflux disease without esophagitis
CPT/HCPCS: 36415; 72020; 72110; 76000; 80048; 81001; 82962; 83735; 85025; 86703; 86704; 86705; 86706; 86708; 86709; 86803; 86850; 86900; 86901; 87081; 87340; 87426; 88304; 93005; 97162; 97530; 99251; C1713; C9803; J7120; A4216; G0463; J2405

== ENCOUNTER 2020-10-17 10:14 | Observation (INO) | payer SELFPAY, OTHER ==
[2020-10-14 10:51] VITALS: BMI 30.4
[2020-10-17] VITALS (13 sets, daily range): BP systolic 90–145; BP diastolic 55–80; PULSE 57–94; RESP 16; TEMP 36.2–37.2; O2SAT 94–100
[2020-10-17] MEDS: Acetaminophen 500 MG Tablet 1000 MG PO ×3 (06:12→21:08)
[2020-10-17] MEDS: Lactated Ringers 1,000 ML 100 ML IV ×3 (06:13→18:17)
[2020-10-17 06:21] LABS: Bedside Glucose 126 mg/dL (70-110)
[2020-10-17] MEDS: Cefazolin 2 GM in 0.9% Normal Saline 100 ML IV (07:35)
[2020-10-17] MEDS: THROMBIN (RECOMBINANT) 20,000 UNIT VIAL 20000 UNIT TOPICAL (08:38)
--- NOTE | 2020-10-17 09:53 | PCM.OPRPT ---
Report of Operation Date of Procedure: 10/17/20 Description of Procedure: Preoperative diagnosis: Left L5 radiculopathy secondary to pedicle screw left side Postoperative diagnosis: The same Procedure: Removal of left L5 pedicle screw S1 pedicle screw and connecting karthikeyan Surgeon: Dr. Gallagher business assistant: Isidro CALLEJAS and Ann Marie CALLEJAS Anesthesia: General endotracheal anesthesia administered by [facility] Estimated blood loss: 20 cc Drains: None Complications: None Procedure: Patient was taken to the OR where she was placed under general endotracheal anesthesia a Machado catheter was inserted. The neuro monitoring commercial pest control technician placed his leads in place. She was then put on the Shar frame on a Rodo table in the prone position. Care was done to protect her bony prominences her breasts ulnar nerves of both elbows her brachial plexus and her cervical spine. We then removed the skin clips prior to prepping. The back was then prepped and draped in standard fashion. An open the incision over the old incision site. Subcutaneous tissues were incised the length of the incision. Note that thorough irrigation was then carried out. I then opened the lumbar fascia in the midline and removed the old sutures. Were able to retract the paravertebrals to the left with manual retraction and the screws were identified the L5 screw was then removed after first removing the karthikeyan in between the 2 screws. I then used a probe to probe the pedicle screw hole. Presumptively the there should have been a defect on the medial side. There was one very small area where the ball probe was checked that possibly was but where the irritation to the nerve came from. Note that she had no neurological deficit only the radicular pain down the a classic L5 dermatome. There was a tiny bit of irritation when I probed the spot as noted by the neuro monitoring commercial pest control technician. It was very slight as the probe was removed it went away completely. Originally I had considered doing a laminectomy to visualize the medial side of the pedicle the probe was removed and it was complete return to normal is 1 we made the decision to not do the laminectomy at all and felt comfortable that the edge of the screw was indeed touching and aggravating the L5 nerve. I then removed the S1 pedicle screw also. This also was probed with the above probe was found to be intact throughout its course. We thoroughly irrigated again with copious amounts of sterile saline noted we had very little bleeding there was no need for a drain. We then closed the lumbar fascia with [id number] suture with #1 Vicryl followed by closure of subcutaneous tissues with 2-0 Vicryl in interrupted fashion. The skin was then approximated using skin clips. Sterile dressings were then applied. The patient was recovered in the OR and taken to recovery in satisfactory condition. This is Dr. Gallagher dictating.
--- NOTE | 2020-10-17 13:02 | PCM.PN.HOSP ---
Subjective Subjective Patient is a 54-year-old lady admitted with Left L5 radiculopathy secondary to pedicle screw left side. She underwent Removal of left L5 pedicle screw S1 pedicle screw and connecting karthikeyan on 10/17/[address] Gallagher Objective Data Objective Data Vital Signs: Vital Signs Temp Pulse Resp BP Pulse Ox 97.8 F 73 16 105/65 94 10/17/20 11:59 10/17/20 11:59 10/17/20 11:59 10/17/20 11:59 10/17/20 11:59 Oxygen Flow Rate (L/min) 6 Oxygen Delivery Method Room Air Weight: 72.2 kg Body Mass Index (BMI) 30.0 Intake & Output: Intake and Output for Last 24 Hours 10/15/20 10/16/20 10/17/20 23:59 23:59 23:59 Intake Total 1104.5 / 1104.5 Output Total 1800 / 1800 Balance -695.5 / -695.5 Lab / Micro Data Labs: Laboratory Results - last 24 hr 10/17/20 05:56 POC Glucose 126 H Micro: Microbiology 10/17/20 05:35 Mucosa - Nose SARS-CoV-2 Antigen (Rapid) - Final Physical Exam Narrative GENERAL: cooperative HEENT: Atraumatic; EYES; Anicteric, Normal Conjunctiva NECK; supple, normal thyroid, RESPIRATORY: Diminished to auscultation CARDIOVASCULAR: Regular S1 S2, GI: soft, normoactive bowel sounds, : No Renal angle tenderness; EXTREMITIES: No edema, no clubbing, MUSCULOSKELETAL: no muscle waisting NEURO: Awake; no lateralizing signs. SKIN: No Rash PSYCH; Flat affect Assessment & Plan Assessment/Plan (1) Spondylolisthesis at L5-S1 level: PLAN: Patient is a 54-year-old lady admitted with Left L5 radiculopathy secondary to pedicle screw left side. She underwent Removal of left L5 pedicle screw S1 pedicle screw and connecting karthikeyan on 10/17/[address] Gallagher 1. Left L5 radiculopathy secondary to pedicle screw left side - She underwent Removal of left L5 pedicle screw S1 pedicle screw and connecting karthikeyan on 10/17/[address] Gallagher. Patient postoperative orders regarding PT OT, DVT prophylaxis and pain management deferred to primary service 2. DVT prophylaxis ?Defer to primary service Charges/Coding Visit Charges Inpatient E&M: 80515 Subs Hosp L2
[2020-10-17] MEDS: Famotidine 20 MG Tablet PO ×2 (14:04→21:08)
[2020-10-17] MEDS: Cefazolin 1 GM/50 ML BAG IV ×2 (16:03→23:27)
[2020-10-17] MEDS: Ensure Surgery 237 ML LIQUID PO (18:17)
[2020-10-17] MEDS: Senna/Docusate Sodium 1 Tablet 2 TABLET PO (21:07)
[2020-10-17] MEDS: Zolpidem Tartrate 5 MG Tablet PO (23:28)
[2020-10-18 04:08] VITALS: BP 107/62; PULSE 70; RESP 16; TEMP 36.8; O2SAT 96
[2020-10-18] MEDS: Acetaminophen 500 MG Tablet 1000 MG PO ×2 (06:01→13:46)
[2020-10-18] MEDS: Cefazolin 1 GM/50 ML BAG IV (07:14)
--- NOTE | 2020-10-18 07:46 | PCM.PN.HOSP ---
Subjective Subjective Postoperative day 1. Patient seen had a relatively uneventful night. Pain is tolerable. Blood pressure was apparently low during the evening but has since stabilized Objective Data Objective Data Vital Signs: Vital Signs Temp Pulse Resp BP Pulse Ox 98.3 F 70 16 107/62 96 10/18/20 04:08 10/18/20 04:08 10/18/20 04:08 10/18/20 04:08 10/18/20 04:08 Oxygen Flow Rate (L/min) 6 Oxygen Delivery Method Room Air Weight: 72.2 kg Body Mass Index (BMI) 30.0 Intake & Output: Intake and Output for Last 24 Hours 10/16/20 10/17/20 10/18/20 23:59 23:59 23:59 Intake Total 2507.83 / 2507.83 1400 / 1400 Output Total 3550 / 3550 450 / 450 Balance -1042.17 / -1042.17 950 / 950 Lab / Micro Data Micro: Microbiology 10/17/20 05:35 Mucosa - Nose SARS-CoV-2 Antigen (Rapid) - Final Physical Exam Narrative GENERAL: cooperative HEENT: Atraumatic; EYES; Anicteric, Normal Conjunctiva NECK; supple, normal thyroid, RESPIRATORY: Diminished to auscultation CARDIOVASCULAR: Regular S1 S2, GI: soft, normoactive bowel sounds, : No Renal angle tenderness; EXTREMITIES: No edema, no clubbing, MUSCULOSKELETAL: no muscle waisting NEURO: Awake; no lateralizing signs. SKIN: No Rash PSYCH; Flat affect Assessment & Plan Assessment/Plan (1) Spondylolisthesis at L5-S1 level: PLAN: Patient is a 54-year-old lady admitted with Left L5 radiculopathy secondary to pedicle screw left side. She underwent Removal of left L5 pedicle screw S1 pedicle screw and connecting karthikeyan on 10/17/[address] Gallagher 1. Left L5 radiculopathy secondary to pedicle screw left side - She underwent Removal of left L5 pedicle screw S1 pedicle screw and connecting karthikeyan on 10/17/[address] Gallagher. Patient postoperative orders regarding PT OT, DVT prophylaxis and pain management deferred to primary service 2. Transient hypotension ?Patient was resuscitated with IV fluid subsequently monitoring with frequent vital signs 3. DVT prophylaxis ?Defer to primary service Charges/Coding Visit Charges Inpatient E&M: 31300 Subs Hosp L2
[2020-10-18 08:12] VITALS: BP 127/76; PULSE 80; RESP 18; TEMP 37.1; O2SAT 98
[2020-10-18] MEDS: Senna/Docusate Sodium 1 Tablet 2 TABLET PO (08:17)
[2020-10-18] MEDS: Famotidine 20 MG Tablet PO (08:17)
[2020-10-18] MEDS: Ensure Surgery 237 ML LIQUID PO (08:20)
--- NOTE | 2020-10-18 12:26 | PCM.DC ---
Discharge Instructions Diet Discharge Diet: No restrictions Activity May shower in (days): 5 May resume sexual activity in: 4-6 weeks Weight Bearing Status: Full weight bearing Lifting Restrictions: 15# Dressing / Incision Call your doctor if your incision/area has: Continuous Slow Oozing, Increased Pain/ Swelling, Increased Redness and Foul Smelling Discharge Call your doctor if you observe: Fever of 101 or Higher, Shortness of breath, Fainting spells and Calf discomfort Remove Dressing in: 4 days Cleanse incision/area with: Soap & Water Follow Up Care Please Follow Up With: Wali Gallagher DO When: 12 days Test Results: Test results from this visit will be discussed in further detail at your follow-up appointment, if applicable. Discharge Plan Admission Admit Date/Time: 10/17/20 10:14 Attending Provider: Mason Barajas Primary Care Provider: Alanna Rivera Consulting Providers: Lissy Curtis Discharge Orders/Prescriptions Prescriptions: No Action Multivitamin Gummies 200 mcg Tablet,Chewable 2 tab PO DAILY RF: 0 Plexus Biocleanse 1 dose PO/SL DAILY RF: 0 Probiotic 2 tab PO/SL DAILY RF: 0 tramadol 50 mg Tablet 50 mg PO Q6H PRN (Reason: Pain) RF: 0
--- NOTE | 2020-10-18 12:32 | PCM.DC ---
Discharge Instructions Diet Discharge Diet: No restrictions Activity May shower in (days): 5 May resume sexual activity in: 4-6 weeks Weight Bearing Status: Full weight bearing Dressing / Incision Call your doctor if your incision/area has: Continuous Slow Oozing, Increased Pain/ Swelling, Increased Redness and Foul Smelling Discharge Call your doctor if you observe: Fever of 101 or Higher, Shortness of breath, Fainting spells and Calf discomfort Cleanse incision/area with: Soap & Water Follow Up Care Please Follow Up With: Wali Gallagher DO Test Results: Test results from this visit will be discussed in further detail at your follow-up appointment, if applicable. Discharge Plan Admission Admit Date/Time: 10/17/20 10:14 Primary Reason for Your Visit: surgery Attending Provider: Mason Barajas Primary Care Provider: Alanna Rivera Consulting Providers: Lissy Curtis Discharge Orders/Prescriptions Prescriptions: No Action Multivitamin Gummies 200 mcg Tablet,Chewable 2 tab PO DAILY RF: 0 Plexus Biocleanse 1 dose PO/SL DAILY RF: 0 Probiotic 2 tab PO/SL DAILY RF: 0 tramadol 50 mg Tablet 50 mg PO Q6H PRN (Reason: Pain) RF: 0 Referrals / Follow Up: Alanna Rivera PA-C [Primary Care Provider] - Disposition Disposition (needs filled in before D/C Order can be placed): Home, self care
--- NOTE | 2020-10-18 12:36 | PCM.DC.SUM ---
Providers Date of Admission: 10/17/20 Primary Care Physician: Alanna Rivera PA-C Consultations 10/17/20 12:26 Consult: Hospitalist Routine Consulting Provider: Lissy Curtis Reason for Consult: medical management EMERGENT Consult: No MD Notified: Yes Date Notified: 10/17/20 Time Notified: 11:59 Method of Notification: Text Diagnosis Discharge Diagnosis (1) Spondylolisthesis at L5-S1 level: Status: Acute Code(s): M43.17 - Spondylolisthesis, lumbosacral region Medications at Discharge Home Medications Multivitamin Gummies 2 tab PO DAILY 09/18/20 Plexus Biocleanse 1 dose PO/SL DAILY 10/01/20 Probiotic 2 tab PO/SL DAILY 10/01/20 tramadol 50 mg PO Q6H PRN 10/15/20 Hospital Course Summary of Care Provided Hospital Course: Mrs. Murillo was admitted yesterday to remove 2 pedicle screws. This was because she had radicular pain secondary to the upper of the 2 screws. Surgery the screws were removed and afterwards she has reported complete relief of her left leg pain. Hospital course was unremarkable. Today she is dressed and ready to go home. She states that she does not even need any pain medication. The dressing is dry neurologically she is intact. She was given instructions regarding her discharge and what to expect when to return to my office etc. she was also told when she could shower after removal of the dressing. I will see her in the office 12 days from today she will call for the appointment. Her Himanshu has my phone number and he is free to use any time to get a hold of me. Weight / BMI Weight Weight: 159 lb 2.78 oz Body Mass Index (BMI) 30.0 ABG / Lab / Microbiology Data Microbiology: Microbiology 10/17/20 05:35 Mucosa - Nose SARS-CoV-2 Antigen (Rapid) - Final D/C Instructions Discharge Diet: No restrictions May shower in (days): 5 May resume sexual activity in: 4-6 weeks Weight Bearing Status: Full weight bearing Call your doctor if your incision/area has: Continuous Slow Oozing, Increased Pain/ Swelling, Increased Redness and Foul Smelling Discharge Call your doctor if you observe: Fever of 101 or Higher, Shortness of breath, Fainting spells and Calf discomfort Cleanse incision/area with: Soap & Water Please Follow Up With: Wali Gallagher DO When: 12 days Meaningful Use Info Meaningful Use Diagnoses (Choose all that apply): None applicable Discharge Plan Admission Admit Date/Time: 10/17/20 10:14 Primary Reason for Your Visit: surgery Attending Provider: Mason Barajas Primary Care Provider: Alanna Rivera Consulting Providers: Lissy Curtis Discharge Orders/Prescriptions Prescriptions: No Action Multivitamin Gummies 200 mcg Tablet,Chewable 2 tab PO DAILY RF: 0 Plexus Biocleanse 1 dose PO/SL DAILY RF: 0 Probiotic 2 tab PO/SL DAILY RF: 0 tramadol 50 mg Tablet 50 mg PO Q6H PRN (Reason: Pain) RF: 0 Referrals / Follow Up: Alanna Rivera PA-C [Primary Care Provider] - Disposition Disposition (needs filled in before D/C Order can be placed): Home, self care
[2020-10-18 13:45] VITALS: BP 137/79; PULSE 84; RESP 18; TEMP 37.4; O2SAT 99
[2020-10-18 13:56] VITALS: BP 137/79; PULSE 84; RESP 18; TEMP 37.4; O2SAT 99
== END 2020-10-18 13:56 | disposition home or self-care (01) ==
LOC: SDC 10:26 → MS3 10:26
PROVIDERS: Admitting Provider Orthopaedic Surgery; PCP Family Medicine; Referring Provider Orthopaedic Surgery; Visit Provider Internal Medicine
PROC: (CPT 63030; principal; 2020-10-17 07:00)
DX: M54.16 Radiculopathy, lumbar region (principal)
CPT/HCPCS: 20680; 82962; 87426; 96361; 96365; 96366; 97161; 99218; 99251; J7120; G0378; G0379; G0463; J2405